=== PATIENT | female | born 1955 | race Two or more races ===

== ENCOUNTER → 2018-08-25 | Outpatient (CLI) | payer OTHER ==
[2018-08-31 11:56] LABS: HPV 16 Negative (Negative); HPV 18 Negative (Negative); HPV OTHER HR TYPES Negative (Negative)
== END ==
LOC: LAB SHORT 18:52 → LAB 18:52
PROVIDERS: Nurse Practitioner Family
DX: Z01.419 Encounter for gynecological examination (general) (routine) without abnormal findings (principal)
CPT/HCPCS: 87625; G0145

== ENCOUNTER 2019-08-18 08:03 | Day surgery (SDC) | payer OTHER ==
[~2019-08-18] VITALS: Ht 152.4 cm; Wt 59.0 kg
[~2019-08-18 08:03] MED LIST: ALBU90OI INH; Allegra-D 12 H1 EACH PO; LOSA50 PO
== END 2019-08-18 09:37 | disposition home or self-care (01) ==
LOC: ORSCSDS 08:03
PROVIDERS: Surgery
PROC: 0DBM8ZX Excision of Descending Colon, Via Natural or Artificial Opening Endoscopic, Diagnostic (ICD-10-PCS; principal; 2019-08-18 09:15)
PROC: 0DBP8ZX Excision of Rectum, Via Natural or Artificial Opening Endoscopic, Diagnostic (ICD-10-PCS; principal; 2019-08-18 09:15)
DX: Z12.11 Encounter for screening for malignant neoplasm of colon (principal); K57.30 Diverticulosis of large intestine without perforation or abscess without bleeding; Z86.010 Personal history of colon polyps; E78.5 Hyperlipidemia, unspecified; L93.0 Discoid lupus erythematosus; M35.00 Sjogren syndrome, unspecified; Z79.899 Other long term (current) drug therapy
CPT/HCPCS: 88305; J2704; J7120

== ENCOUNTER → 2020-05-07 | Outpatient (CLI) | payer OTHER | END | disposition home or self-care (01) | LOC: LAB 10:37 | DX: N95.2 Postmenopausal atrophic vaginitis (principal) | CPT/HCPCS: 87070; 87205 ==

== ENCOUNTER → 2020-05-30 | Outpatient (CLI) | payer OTHER | END | disposition home or self-care (01) | LOC: PLD 14:04 → LAB SHORT 14:04 | DX: L30.8 Other specified dermatitis (principal) | CPT/HCPCS: 88305; 88312 ==